=== PATIENT | male | born 1965 | race African-American/Black ===

== ENCOUNTER 2016-09-06 15:45 | Emergency (ER) | payer OTHER, BC ==
[~2016-09-06 15:45] MED LIST: *DENIES; ASAB PO
== END 2016-09-06 15:50 | disposition home or self-care (01) ==
LOC: ER 15:45
DX: S39.92XA Unspecified injury of lower back, initial encounter (principal); S49.92XA Unspecified injury of left shoulder and upper arm, initial encounter; I10 Essential (primary) hypertension; Z87.891 Personal history of nicotine dependence; Z88.0 Allergy status to penicillin; Z79.82 Long term (current) use of aspirin; V49.40XA Driver injured in collision with unspecified motor vehicles in traffic accident, initial encounter
CPT/HCPCS: 72100; 73030-LT; 99284